=== PATIENT | male | born 1960 | race Caucasian/White ===

== ENCOUNTER 2024-01-10 10:40 | Day surgery (SDC) | payer OTHER, SELFPAY ==
[2024-01-10 11:09] VITALS: BP 163/99
[2024-01-10] MEDS: NSS 500 IV (11:26)
[2024-01-10 11:32] LABS: Hematocrit 51.1 % (39.0-52.0); Hemoglobin 17.5 g/dL (13.0-18.0); Mean Corp Hgb Conc. 34.2 g/dL (33.0-37.0); Mean Corpuscular Volume 90.4 fL (80.0-94.0); Mean Platelet Volume 10.5 fL (7.4-10.4); Platelet Count 189 10^3/uL (130-400); Red Blood Cell Count 5.65 10^6/uL (4.70-6.10); Red Cell Dist. Width 12.4 % (11.5-14.5); White Blood Cell Count 7.7 10^3/uL (4.8-10.8)
[2024-01-10 12:00] LABS: Blood Urea Nitrogen 20 mg/dl (9-20); Calcium 9.3 mg/dl (8.4-10.2); Carbon Dioxide 24 mmol/L (22-30); Chloride 106 mmol/L (98-107); Estimated Creatinine Clearance > 125 ml/min; Glucose 99 mg/dl (70-99); Potassium 4.1 mmol/L (3.5-5.1); Sodium 140 mmol/L (135-145); eGFR > 60.00
--- NOTE | 2024-01-10 14:46 | ITS.CL.PACE ---
[employer] - Pacemaker Implant
Pacemaker Implant
Procedure Report:
PACEMAKER GENERATOR CHANGE
Date of Procedure: January 10, 2024
Primary Care Provider: Dr. Sacha Maurer
Primary deli manager: Dr Eze Bains
PROCEDURES:
1. Removal of SANDWICH BOARD CARRIER chamber PPM generator at [facility]
2. Implant of new SANDWICH BOARD CARRIER chamber PPM generator
INDICATION FOR PROCEDURE:
1. PPM generator at [facility]
2. Non-reversible symptomatic bradycardia due to third degree atrioventricular block
HISTORY:
Patient has remote history of AV fredi ablation and placement of a SANDWICH BOARD CARRIER pacemaker, this is 2018. Pacemaker is now at elective replacement indices.
The patient was prepped and draped in sterile fashion. Lidocaine with epi was used for local anesthesia. An incision was made along the previous incision and the device and leads were carefully dissected from the pocket. Hemostasis was obtained
with electrocautery. The leads were from the device header and tested using an external analyzer. The pocket was liberally irrigated with antibiotic solution. Once testing (see below) showed adequate and stable function, the leads were
connected to the generator header and the leads and generator were placed within the pocket. The pocket was closed in the typical fashion.
Tyrex antibiotic pouch was used
EXPLANTED PPM GENERATOR:
Medtronic
IMPLANTED PPM GENERATOR:
Medtronic [id number], SN MACHINE OPERATOR ASSISTANT [id number]
EXISTING:
Existing RV lead: Medtronic [id number] implanted September 19, 2018
Existing LV lead: Medtronic [id number] implanted September 19, 2018
DEVICE TESTING:
Sensing: NO escape
Capture: RA Capped, RV 0.75 V @ 0.4ms, LV 3 V @ 0.4ms
Ohms: RV 494, LV 342
FINAL PROGRAMMING
Sushant Pacing: VVIR 70 - 140 ppm
COMPLICATIONS:
None
CONCLUSIONS:
1. Successful explant of SANDWICH BOARD CARRIER chamber permanent pacemaker
2. Successful implant of SANDWICH BOARD CARRIER chamber permanent pacemaker
RECOMMENDATIONS:
1. In-Office wound check in 7-10 days.
Copy to:
Dr. Sacha Maurer
Dr Eze Bains
[2024-01-10 15:02] VITALS: BP 119/69
[2024-01-10 15:04] VITALS: BP 106/73
[2024-01-10] MEDS: TYLENOL 650 MG PO (15:11)
[2024-01-10 15:19] VITALS: BP 117/81
[2024-01-10 15:35] VITALS: BP 129/77
[2024-01-10 15:49] VITALS: BP 138/82
== END 2024-01-10 16:12 | disposition home or self-care (01) ==
LOC: CATH 10:40
PROVIDERS: ATTENDING PHYSICIAN Internal Medicine Cardiovascular Disease
DX: I44.2 Atrioventricular block, complete (principal); I48.20 Chronic atrial fibrillation, unspecified; R06.02 Shortness of breath
CPT/HCPCS: 33229; 80048; 85027; C2621

== ENCOUNTER 2024-01-11 12:20 | Emergency (ER) | payer OTHER, SELFPAY ==
[2024-01-11] VITALS (17 sets, daily range): BP systolic 133–188; BP diastolic 89–116; BMI 29.8
--- NOTE | 2024-01-11 12:33 | ED.GENMED ---
History of Present Illness
General
Chief Complaint: Chest Problem
Source: patient, records and ambulance crew
Exam Limitations: none
Time Seen by Provider: 01/11/24 12:25
Nursing documentation reviewed up to this point in time: agreed with
Travel History
Have you had any contact with someone who has COVID-19?: No
Do you have any symptoms of coronavirus? Fever > 100 degrees, chills, cough, shortness of breath, sore throat, loss of taste or smell, muscle aches, or headache?: No
History of Present Illness
History of Present Illness:
63-year-old male with a past medical history of permanent A-fib who is status post pacemaker implantation with Dr. Ascencio yesterday; he presents from home for evaluation after he says that his pacemaker shocked him 5 times. He says he was
resting at home and suddenly felt a shock from his pacemaker that was quite intense and painful. He says that this happened 3 additional times in the next hour. EMS was called to the scene and according to EMS they also witnessed a shock delivered
on the way to the hospital. He currently is asymptomatic says that he feels well�denies any chest pain, shortness of breath, palpitations. Was discharged from the hospital yesterday.
Past History
Past History
ED Past Medical History: HTN and Hypercholesterolemia
ED Past Surgical History: Cardiac (Pacemaker, ablation), Cholecystectomy and Orthopedic
Social History
Tobacco: Non-smoker
Alcohol: Occasional
Drug: None
Living: with family
Employment: Not employed
Family History
Family History: Hypertension
Review of Systems
Review of Systems
All Other Systems: ROS reviewed and negative except as documented in HPI and ROS
Constitutional: Denies fever
Respiratory: Denies trouble breathing
Cardiac: Reports other (Pacemaker history); Denies chest pain
ABD/GI: Denies abdominal pain, nausea or vomiting
: Denies flank pain
Musculoskeletal: Denies neck pain or back pain
Neurological: Denies headache
Phy Exam
Physical Exam
Physical Exam:
General: Awake, alert, oriented x3; no acute distress
Head: Normocephalic, atraumatic
Eyes: Conjunctiva normal
Throat: Airway intact, handling secretions
Neck: Trachea midline, supple without meningismus
Lungs: Clear to auscultation bilaterally, no wheezing, rales, rhonchi
Heart: Regular rate and rhythm, no murmurs, gallops, or rubs; pacemaker in place left upper chest with dressing in place overlying
Abd: Soft, non distended, nontender
Neuro: Cranial nerves grossly intact, speech fluid
Skin: no rash
Extremities: Warm and well-perfused
Scores
Heart Failure Risk
Heart Failure Risk Score: Not Applicable
Heart Score for Chest Pain Patients
STEMI patient?: Not applicable
Withdrawal Assessment of Alcohol
Withdrawal Assessment Completed?: Not applicable
Course
Orders/Labs/Results
Orders:
Orders
01/11/24 12:21
Electrocardiogram (*1) Urgent
Reason for Study: Tachycardia
01/11/24 12:22
EKG- Treatment ONCE
01/11/24 12:26
Interrogate Pacemaker- Treatment ONCE
CR Chest Portable - 1 View Urgent
Comment:
Reason For Exam: pacemaker issue-eval for lead fx or migration
Reason Study Needs to be Portable: Unable to Transport
01/11/24 12:28
Complete Blood Count/With Diff Urgent
Comprehensive Metabolic Panel Urgent
Magnesium Urgent
01/11/24 12:32
CARDIOLOGY CONSULT Urgent
Consulting Provider: Eze Bains
Was physician already notified: Yes
01/11/24 14:49
Echo 2D MMode Color/Doppler Urgent
Reason for Study: chest pain
Cardiology Consult: Eze Bains
Abnormal Lab Results
04/02/24
12:28
MPV 10.8 H fL
(7.4-10.4)
BUN 22 H mg/dl
(9-20)
Glucose 102 H mg/dl
(70-99)
Total Bilirubin 1.8 H mg/dl
(0.2-1.3)
01/11/24 12:28
01/11/24 12:28
Vital Signs
Initial and Last Documented VS:
Initial Vital Signs
Temp Pulse Resp BP Pulse Ox
37.0 C 71 18 188/116 97
01/11/24 12:22 01/11/24 12:22 01/11/24 12:22 01/11/24 12:22 01/11/24 12:22
Last Documented Vital Signs
Temp Pulse Resp BP Pulse Ox
37.0 C 70 16 146/93 96
01/11/24 12:22 01/11/24 13:00 01/11/24 13:00 01/11/24 13:00 01/11/24 13:00
MDM/Problems Addressed
Differential Diagnosis Includes:
Pacemaker malfunction�lead fracture, lead migration, dysrhythmia
MDM/Problems Addressed:
63-year-old male presents for evaluation after he says that his pacemaker shocked him a total of 5 times in the past 2 hours. He was discharged yesterday after pacemaker was implanted for permanent A-fib. Reviewed report of that does not appear to
be an ICD so unclear exactly what accounts for this shock that patient is feeling. EKG shows a paced rhythm. Will interrogate device. Will check basic labs. Will check a chest x-ray to evaluate leads. Case discussed with cardiology for
assessment.
Discussed with cardiology who confirmed patient has pacemaker no ICD functionality. Medtronic rep at bedside and interrogated and device functioning appropriately, no lead fracture on chest x-ray. No events on interrogation report. Cardiology at
bedside assessing awaiting their recommendations. Remains clinically stable�his triage hypertension has normalized.
Cardiology recommending echocardiogram; if stable can be discharged from their perspective�patient's device is incapable of discharging suspect symptoms may be musculoskeletal or perhaps mild neuropathy related to recent procedure.
Chronic conditions affecting care:
Permanent atrial fibrillation
Acute Exacerbation and/or Progression of Chronic Illness:
Acutely hypertensive
Acute Exacerbation and/or Progression of Chronic Illness: HTN
*Radiology
Radiology exam reviewed: radiology read reviewed
*Pulse Oximetry
Patient hypoxic: no
*EKG
Interpreted by ED Provider?: Yes
Heart Rate: 71
Rhythm: ventricular paced
*Critical Care Note
Total Time (30-74mins, 75-104mins- exclusive of procedures): Not Applicable
Data Reviewed
Review of Other/Old Records Reveals: Labs, Records, Operative Reports and Discharge Summary
Source: patient, records and ambulance crew
Patient Management
Discussion with other providers: Robotics Systems Engineer (Discussed with cardiology)
ED Attending Note
-
Portions of this chart may have been created with voice recognition software.� Occasional wrong word or��sound alike� substitutions may have occurred due to the inherent limitations of voice recognition software.
Discharge Plan
Departure
Prescriptions:
No Action
naproxen sodium [Aleve] 220 MG tablet
220 mg PO DAILY
naproxen sodium [Aleve] 220 mg Tablet
220 mg PO HSPRN PRN (Reason: back pain)
Referrals:
Kaushik Crenshaw DO [Family Provider] -
Interventions
Interventions:
*Risk Screen - Suicide Last Done: 01/11/24 12:22
*General Assessment Last Done: 01/11/24 12:22
*Neglect/Abuse Screening Last Done: 01/11/24 12:22
ED- Cardiac Assessment Last Done: 01/11/24 12:30
ED- Pulmonary Assessment Last Done: 01/11/24 12:30
Discharge Date and Time
Print Language: CHINESE
[2024-01-11 13:02] LABS: % Basophils 0.4 % (0-2); % Eosinophils 3.4 % (0-6); % Immature Granulocytes 0.1 % (0-0.5); % Lymphocytes 23.2 % (20.5-51.1); % Neutrophils 64.9 % (42.2-75.2); Absolute Eosinophils 0.3 10^3/uL (0-0.7); Absolute Lymphocytes 1.8 10^3/uL (1.2-3.4); Absolute Monocytes 0.6 10^3/uL (0.1-0.6); Hematocrit 49.1 % (39.0-52.0); Hemoglobin 16.9 g/dL (13.0-18.0); Mean Corp Hgb Conc. 34.4 g/dL (33.0-37.0); Mean Corpuscular Volume 89.9 fL (80.0-94.0); Mean Platelet Volume 10.8 fL (7.4-10.4); Nucleated Red Blood Cells % 0 % (-); Platelet Count 184 10^3/uL (130-400); Red Blood Cell Count 5.46 10^6/uL (4.70-6.10); Red Cell Dist. Width 12.5 % (11.5-14.5); White Blood Cell Count 7.8 10^3/uL (4.8-10.8)
[2024-01-11 13:18] LABS: ALT (SGPT) 19 U/L (0-50); AST (SGOT) 29 U/L (17-59); Albumin 4.1 g/dl (3.5-5.0); Alkaline Phosphatase 76 U/L (38-126); Blood Urea Nitrogen 22 mg/dl (9-20); Calcium 9.2 mg/dl (8.4-10.2); Carbon Dioxide 25 mmol/L (22-30); Chloride 106 mmol/L (98-107); Estimated Creatinine Clearance 102 ml/min; Glucose 102 mg/dl (70-99); Magnesium 2.1 mg/dl (1.6-2.3); Sodium 140 mmol/L (135-145); Total Bilirubin 1.8 mg/dl (0.2-1.3); Total Protein 6.7 g/dl (6.3-8.2); eGFR > 60.00
--- NOTE | 2024-01-11 14:36 | CON.CAR ---
Addendum entered and electronically signed by Eze Bains DO 01/11/24 16:22:
I saw and examined the patient.
The Shaper And Presser's note was reviewed and I agree with the note.
Comment:
Plan:
His symptoms are atypical
Pacer interrogation is normal with normal function
ER work up negative.
Echo without change and no effusion
Outpt follow up has been arranged.
He will call our office with any recurrent symptoms.
Reviewed with ER.
Original Note:
Consultation
Consultation Request
Date/Time Consultation Performed: 01/11/24
Requesting Provider: Dr. Evans
Performing Provider: Vickie Edmondson PA-C for Dr. Bains
Reason for Consultation: pain s/p generator change
Medical History
-
Chief Complaint: chest discomfort
History of Present Illness:
Patient is a 63-year-old male with past medical history of permanent A-fib. He had previously been followed by [facility] and due to difficult to control heart rates with his A-fib, and issues with noncompliance, he underwent Medtronic
pacemaker placement 09/2018, followed by AV node ablation 03/2019. Due to this he is pacemaker dependent. He has previously refused anticoagulation, and intermittently takes aspirin (he notes history of hives with Eliquis, Xarelto, Lovenox). He
was lost to cardiac follow-up, and reestablished with [facility] 04/2021, and then more recently 12/16/2023. He has social issues which prohibit him from receiving regular care. At 12/16/2023 visit device was interrogated and felt to be close to [facility]. He was
arranged for generator change which took place 01/10/2024 and he was discharged home same day. He returns today as he describes several episodes of stabbing chest discomfort, centrally located and extending down into epigastrium, which last for
several seconds. He initially described the sensation as a 'shock' from his device. HE DOES NOT HAVE A DEFIBRILLATOR. Cardiology consulted for evaluation.
PMH:
Permanent atrial fibrillation
Not chronically anticoagulated due to patient refusal
Status post Medtronic pacemaker placement 09/2018
Status post AV node ablation 03/2019
Pacemaker dependent
Hypertension
Noncompliance with medications and follow-up
Past Medical History
Past Medical History: Other (in HPI)
Social History
Tobacco: Non-Smoker
Alcohol: Occasional
Living: With [employer]
Employment: Not Employed
Allergies / Home Medications
Allergy/AdvReac Type Severity Reaction Status Date / Time
diltiazem Allergy blood Verified 01/11/24 12:27
blisters,
rash
enoxaparin [From Lovenox] Allergy blood Verified 01/11/24 12:27
blisters
propoxyphene [From Darvon] Allergy syncope Verified 01/11/24 12:27
all blood thinners Allergy Hives Uncoded 01/11/24 12:27
�Medication �Instructions �Recorded �Confirmed �Type
naproxen sodium 220 mg tablet 220 mg PO DAILY 03/27/19 01/11/24 History
(Aleve)
naproxen sodium 220 mg tablet 220 mg PO HSPRN PRN back pain 01/11/24 01/11/24 History
(Aleve)
Review of Systems
-
History Source: Patient
All other systems: Negative unless noted
Physical Exam
Vital Signs
Temp Pulse Resp BP Pulse Ox
98.6 F 70 16 146/93 96
01/11/24 12:22 01/11/24 13:00 01/11/24 13:00 01/11/24 13:00 01/11/24 13:00
Lab Results
01/11/24 12:28
01/11/24 12:28
Physical Exam
General: No Apparent Distress and Comfortable
HEENT: Normocephalic, Anicteric and Moist Mucous Membranes
Respiratory: Clear and Non Labored Respirations
Cardiac: S1/S2 and Regular Rhythm
GI: Soft, Non Tender, Non Distended and Normal Bowel Sounds
Musculoskeletal: No Clubbing, No Cyanosis and No Edema
Skin: Warm, Dry and Other (L chest with dressing c/d/i)
Neuro: AO x 3
Impression / Plan
-
Primary Deputy Chief Counsel: Dr. Bains
Assessment:
Presentation with chest discomfort
Status post Medtronic RAIL MANAGER PPM generator change 01/10/24
Permanent atrial fibrillation
Not chronically anticoagulated due to patient refusal
Status post Medtronic RAIL MANAGER pacemaker placement 09/2018
Status post AV node ablation 03/2019
Pacemaker dependent
Hypertension
Noncompliance with medications and follow-up
Echo 05/06/2021: EF 55 to 60%, mild concentric LVH, pacemaker wire in right ventricle and right atria
Plan:
-Patient presents with brief episodes of stabbing chest discomfort in the setting of recent generator change 01/10/2024, which he initially described as 'shocks'. He does not have a defibrillator. He did not have any repositioning of leads or
addition of any leads during procedure yesterday.
-Device interrogated by Medtronic agency sales representative in ER 01/11/24. Device functioning appropriately. No arrhythmias noted. He was noted to have diaphragmatic stim yesterday with mode switch to allow for gene change as pacer dependent, however resolved
with programming back post gene change. none noted by interrogation today
-portable CXR results reviewed, limited due to patient positioning.
-EKG vpaced
-currently without discomfort
-check echo
-suspected post procedural discomfort. continue tylenol PRN
-OP cardiac follow up as arranged
Data Reviewed
-
EKG: Tracing Personally Visualized and interpreted
Radiology: Image Personally Visualized and interpreted and Report Reviewed by me
Medical Tests (Nuc Med, Echo etc): Report Reviewed by me
Labs: Labs Reviewed by me
Old Records: Reviewed
== END 2024-01-11 17:59 | disposition home or self-care (01) ==
LOC: EMR 12:20
PROVIDERS: CONSULT PHYSICIAN Nuclear Medicine Nuclear Cardiology; EMERGENCY PHYSICIAN Emergency Medicine; FAMILY PHYSICIAN Family Medicine
DX: R07.89 Other chest pain (principal); R06.02 Shortness of breath; R00.2 Palpitations; I48.21 Permanent atrial fibrillation; I11.9 Hypertensive heart disease without heart failure; Z95.0 Presence of cardiac pacemaker; Z91.148 Patient's other noncompliance with medication regimen for other reason
CPT/HCPCS: 99285; 93280; 71045; 80053; 83735; 85025; 93005; 93306

== ENCOUNTER 2024-03-10 11:57 | Emergency (ER) | payer OTHER, SELFPAY ==
[2024-03-10 12:00] VITALS: BP 165/100
--- NOTE | 2024-03-10 13:46 | ED.GENMED ---
History of Present Illness
General
Chief Complaint: Chest Pain
Source: patient
Exam Limitations: none
Time Seen by Provider: 03/10/24 13:23
Nursing documentation reviewed up to this point in time: agreed with
Travel History
Have you had any contact with someone who has COVID-19?: No
Do you have any symptoms of coronavirus? Fever > 100 degrees, chills, cough, shortness of breath, sore throat, loss of taste or smell, muscle aches, or headache?: No
History of Present Illness
History of Present Illness:
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 ellison on 01/09
had some complications with incision site with delayed healing, had round of abx
but it is fully closed
pt has felt a feeling of being 'zapped' in his chest today x 4
3 at home and 1 here
no loc, sob, leg swelling, syncpoe
pt says he has never had this feeling before
not anticoagulated
no other symtposm currently
Past History
Past History
ED Past Medical History: HTN and Hypercholesterolemia
ED Past Surgical History: Cardiac (Pacemaker, ablation), Cholecystectomy and Orthopedic
Social History
Tobacco: Non-smoker
Alcohol: Occasional
Drug: None
Living: with family
Employment: Not employed
Family History
Family History: Hypertension
Review of Systems
Review of Systems
Allergies reviewed?: Yes
All Other Systems: Not applicable
Phy Exam
Physical Exam
Physical Exam:
GENERAL: Alert , in no apparent distress
EYE: pupils equal and reactive
NECK: Supple
ENT: o/p clr, mmm.
CARDIAC: Regular rate and rhythm .
chest wall: incision site closed, no erythema, no drainage, notenderness;
LUNGS: Clear breath sounds bilaterally, no acute respiratory distress, no wheezes/rales/rhonchi
ABDOMEN: Soft, without focal tenderness, no r/g, no cvat, normal bowel sounds
NEUROLOGICAL: Alert and oriented, no focal neuro deficits
SKIN: Warm and dry, skin intact.
MUSCULOSKELETAL: No edema, well perfused. neg roscoe's sign
PSYCH: Normal and appropriate interaction.
Scores
Heart Score for Chest Pain Patients
STEMI patient?: Not applicable
Course
Orders/Labs/Results
Orders:
Orders
03/10/24 12:03
Electrocardiogram (*1) Urgent
Reason for Study: Chest Pain
EKG- Treatment ONCE
Vital Signs
Initial and Last Documented VS:
Initial Vital Signs
Temp Pulse Resp BP Pulse Ox
98.0 F 94 16 165/100 98
03/10/24 12:00 03/10/24 12:00 03/10/24 12:00 03/10/24 12:00 03/10/24 12:00
Last Documented Vital Signs
Temp Pulse Resp BP Pulse Ox
98.0 F 70 16 155/100 96
03/10/24 12:00 03/10/24 14:00 03/10/24 12:00 03/10/24 14:00 03/10/24 14:00
MDM/Problems Addressed
Differential Diagnosis Includes:
atrial tachycardia
palpitations
pacer malfucntion
MDM/Problems Addressed:
63 y/o M with recent pacemaker replacement 01/[address] ellison (h/o complete heart block)
this was 2nd device, original was 6 years ago
here with feeling 'zapped' 4 times today
as far as i can tell this is a pacer and not defibrillator
the report shows no events/arrhythmias today
pt apparently had one of these episodes while it was getting interrogated
he was recently in the office x 2 because of wound dehiscence of his incision site chest wall and took round of abx, and it is fully closed and looks well
pt is hyhpertensive 160/100 but otehrwise looks well.
case d/w dr. hammond
agrees, there were no events
perhaps pt is having spasm or nerve pain but he does not have an ICD so he is not getting shocked
there is no sign clinically of incision infection
d/w ed attending
dr. noble did not think that lab work amd cxr were helpful
pt agrees
d/c home
*Critical Care Note
Total Time (30-74mins, 75-104mins- exclusive of procedures): Not Applicable
ED Attending Note
-
Portions of this chart may have been created with voice recognition software.� Occasional wrong word or��sound alike� substitutions may have occurred due to the inherent limitations of voice recognition software.
Discharge Plan
Departure
Patient Disposition: Home (Routine Discharge)
Date of Disposition: 03/10/24
Time of Disposition: 14:20
Patient with high blood pressure during this ER visit?: Yes
Condition: Fair
Covid-19: Not Applicable
Discharge Problem:
Acute chest wall pain
Instructions: Costochondritis (DC), BLOOD PRESSURE
Prescriptions:
No Action
naproxen sodium [Aleve] 220 MG tablet
220 mg PO DAILY
naproxen sodium [Aleve] 220 mg Tablet
220 mg PO HSPRN PRN (Reason: back pain)
Referrals:
Adelso Garrison CRNP [Family Provider] -
Eze Little DO [Active] - Follow up in 5-7 days (cards)
Activity Restrictions/Additional Instructions:
Your chest discomfort is possibly because of nerve or muscle inflammation. You could have also had a spasm. Your pacemaker shows that there were no events. Please follow-up with Dr. little as an outpatient next week. Return to the ER for any
concerns, like shortness of breath, leg swelling, passing out, etc.
Interventions
Interventions:
*Risk Screen - Suicide Last Done: 03/10/24 13:59
*General Assessment Last Done: 03/10/24 13:59
*Neglect/Abuse Screening Last Done: 03/10/24 13:59
ED- Fall Risk Assessment Last Done: 03/10/24 14:00
*ED COVID-19 Vaccine History Last Done: 03/10/24 12:00
ED- Cardiac Assessment Last Done: 03/10/24 14:00
Discharge Date and Time
Print Language: UPPER SORBIAN
[2024-03-10 13:54] VITALS: BMI 30.2
[2024-03-10 14:00] VITALS: BP 155/100
[2024-03-10 15:09] VITALS: BP 151/96
== END 2024-03-10 15:10 | disposition home or self-care (01) ==
LOC: EMR 11:57
PROVIDERS: EMERGENCY PHYSICIAN Emergency Medicine; FAMILY PHYSICIAN Nurse Practitioner Family
DX: R07.89 Other chest pain (principal); I10 Essential (primary) hypertension; E78.00 Pure hypercholesterolemia, unspecified; Z82.49 Family history of ischemic heart disease and other diseases of the circulatory system; Z90.49 Acquired absence of other specified parts of digestive tract; Z95.0 Presence of cardiac pacemaker
CPT/HCPCS: 99283; 93005